=== PATIENT | male | born 1975 | race Caucasian/White ===

== ENCOUNTER 2020-03-15 17:15 | Emergency (ER) | payer SELFPAY ==
[~2020-03-15] VITALS: Ht 177.8 cm; Wt 70.0 kg
[2020-03-15 19:21] LABS: *AMPHETAMINES SCREEN URINE PRESUMTIVE POSITIVE (NEGATIVE); *BARBITURATES SCREEN URINE NEGATIVE (NEGATIVE); *BENZODIAZEPINES SCREEN URINE NEGATIVE (NEGATIVE); *COCAINE SCREEN URINE PRESUMTIVE POSITIVE (NEGATIVE); METHADONE URINE SCREEN NEGATIVE (NEGATIVE)
[2020-03-15 19:23] LABS: HEMATOCRIT. 43.7 % (42.0-52.0); HEMOGLOBIN. 14.9 g/dL (14.0-18.0); MEAN CORPUSCULAR HEMOGLOBIN 33.1 pg (28.0-32.0); MEAN CORPUSCULAR VOLUME 96.7 fL (80.0-94.0); MEAN PLATELET VOLUME 9.5 fl (7.4-10.4); PLATELET 151 x1000/uL (130-400); RED BLOOD CELL COUNT 4.51 mill/uL (4.7-6.1)
[2020-03-15 19:23] LABS: CANNABINOID URINE SCREEN NEGATIVE (NEGATIVE); OPIATES URINE SCREEN NEGATIVE (NEGATIVE); PHENCYCLIDINE URINE SCREEN NEGATIVE (NEGATIVE)
[2020-03-15 19:27] LABS: CHLORIDE 99 mEq/L (98-107)
[2020-03-15 19:40] LABS: PLATELET ESTIMATE NORMAL
[2020-03-15] MEDS ORDERED: OLANZAPINE 10 MG/VIAL IM ONE (23:15)
[2020-03-15 23:26] LABS: ETHANOL BLOOD < 10 mg/dL
[2020-03-16] MEDS ORDERED: ZIPRASIDONE MESYLATE 20MG/VIAL IM ONE (04:30)
[2020-03-16 06:15] VITALS: BP 132/72
== END 2020-03-16 07:00 | disposition home or self-care (01) ==
LOC: ER 17:15 → EDBD 17:15 → ER 03-16 07:00
DX: S83.8X2A Sprain of other specified parts of left knee, initial encounter (principal); W18.39XA Other fall on same level, initial encounter; F19.10 Other psychoactive substance abuse, uncomplicated; Y93.89 Activity, other specified; Y92.89 Other specified places as the place of occurrence of the external cause; Y99.8 Other external cause status
CPT/HCPCS: 36415; 70450; 71045; 73562; 80053; 80305; 80307; 80320; 80329; 85025; 96372; 99285; J3486; J3490; G0480